=== PATIENT | female | born 1970 | race Caucasian/White ===

== ENCOUNTER 2023-12-18 08:55 | Emergency (ER) | payer OTHER, SELFPAY ==
--- NOTE | 2023-12-18 08:59 | ED_ITS ---
HPI - General Adult General Chief complaint: Extremity Injury, Lower Stated complaint: torn something in L calf? swollen, bruised Time Seen by Provider: 12/18/23 08:59 History of Present Illness HPI narrative: 53-year-old woman with no significant medical issues was adjusting herself on a plane felt a pop in the posterior portion of her lap left calf. This happened on the . She has had increasing pain and swelling over the ensuing week. Today she noticed some bruising along the anterior jung and comes in for further evaluation. She is returning home on a plane on the 12/09 and wants to make sure it is safe for her to fly. She notes that activity makes things worse, there is no knee pain or ankle pain. If she keeps the leg supine there was more swelling which is more uncomfortable. No other complaints Related Data Allergies Allergy/AdvReac Type Severity Reaction Status Date / Time No Known Drug Allergies Allergy Verified 12/18/23 09:13 Exam Initial Vital Signs Initial Vital Signs: General: Alert appropriate in no acute distress Respiratory: Able to speak in full sentences, no obvious respiratory distress Skin: No obvious rashes, warm and dry Neurologic: Grossly intact no obvious asymmetries or abnormalities Psych: appropriate insight and affect, cooperative Extremity: Left calf has some old bruising on the anterior jung and the mid gastric area. There was no obvious step-off to the gastroc muscle. No obvious popliteal cyst or knee abnormalities. She is neurovascularly intact. Medical Decision Making MDM Narrative Medical decision making narrative: 53-year-old woman presents so weak after experiencing a significant pop in the left knee that is most consistent with at least a partial gastroc tear. She was most concerned with bruising noted today and given the coloration of the br uising like it has been working its way to the surface for the last week. She does not have an obvious step-off in the muscle, she is able to walk although it is somewhat painful. This does not look like a DVT. We discussed anticipated course of hearing with partial gastric tears. I did recommend compression socks, elevation, ice and heat is required ibuprofen as needed. I believe that flying home is safe particularly if she is using compression socks on the plane. Questions answered she is safe for discharge Discharge Plan Departure Patient Disposition: Home Clinical Impression: Gastrocnemius muscle tear Qualifiers: Encounter type: initial encounter Laterality: left Qualified Code(s): S86.112A - Strain of other muscle(s) and tendon(s) of posterior muscle group at lower leg level, left leg, initial encounter Instructions: DI for Calf Muscle Strain Activity Restrictions/Additional Instructions: Based on your history and your physical exam, you have at least a partial tear of your calf muscle. The fact that it took almost a week for the blood to work its way to the surface, that is the bruising that you were seen today, seems appropriate for a deeper muscle tear. This is going to get better, it typically takes up to 6 weeks to fully resolve Using compression socks, I have found that running compression socks with the most comfortable and can be found at running stores or sporting goods stores, help significantly with the swelling by the end of the day. Keeping the leg is elevated as possible particularly night can help with the aching pain. You are going to make the injury worse by using your calf however the more you are walking and use in your calf the more pain and swelling you are going to have by the end of the day Using 400 mg of ibuprofen (2 [id number] pills) and 1 Tylenol every 6 hours can be very helpful in controlling pain. It is okay to fly, I would recommend using compression socks during the flight. If you find that you are getting worse or develop any new symptoms, please feel free to return to the emergency department for further evaluation. Stand Alone Forms: Patient Portal/API
[2023-12-18 09:10] VITALS: BP 169/84; PULSE 71; RESP 16; TEMP 36.9; O2SAT 99; BMI 35.4
== END 2023-12-18 09:25 | disposition home or self-care (01) ==
PROVIDERS: Emergency Provider Emergency Medicine
DX: S86.112A Strain of other muscle(s) and tendon(s) of posterior muscle group at lower leg level, left leg, initial encounter (principal)
CPT/HCPCS: 99281